=== PATIENT | female | born 1965 | race Two or more races ===

== ENCOUNTER 2023-06-25 20:31 | Emergency (ER) | payer OTHER ==
[~2023-06-25] VITALS: Ht 162.6 cm; Wt 108.9 kg
[2023-06-25] MEDS ORDERED: NORVASC5 MG (20:44)
[2023-06-25] MEDS ORDERED: COZAAR50 MG (20:44)
== END 2023-06-25 22:05 | disposition home or self-care (01) ==
LOC: ER 20:31
DX: S80.02XA Contusion of left knee, initial encounter (principal); W10.2XXA Fall (on)(from) incline, initial encounter; Y93.9 Activity, unspecified; Y92.9 Unspecified place or not applicable; Y99.9 Unspecified external cause status; I10 Essential (primary) hypertension